=== PATIENT | female | born 1990 | race African-American/Black ===

== ENCOUNTER 2019-08-02 10:11 | Emergency (ER) | payer MEDICAID ==
[~2019-08-02] VITALS: Ht 160 cm; Wt 42.0 kg
[2019-08-02 10:36] VITALS: BP 131/80
[2019-08-02] MEDS: KETOROLAC 60MG/2ML VIAL IM ONE (11:17)
== END 2019-08-02 11:22 | disposition home or self-care (01) ==
LOC: ER 10:29
DX: K08.89 Other specified disorders of teeth and supporting structures (principal); F12.10 Cannabis abuse, uncomplicated; F17.200 Nicotine dependence, unspecified, uncomplicated
CPT/HCPCS: 81025; 96372; 99283; J1885

== ENCOUNTER 2024-03-17 18:03 | Emergency (ER) | payer MEDICAID, OTHER ==
[~2024-03-17] VITALS: Ht 167.6 cm; Wt 58.0 kg
[2024-03-17 18:07] VITALS: TEMP 98.1; O2SAT 100
[2024-03-17 18:35] VITALS: BP 120/77; PULSE 118; RESP 18
[2024-03-17] MEDS: KETOROLAC 30MG/ML VIAL IM ONE (18:35)
[2024-03-17] MEDS ORDERED: ACET-2708 MT (19:19)
== END 2024-03-17 19:57 | disposition home or self-care (01) ==
LOC: ER 18:03
DX: R51.9 Headache, unspecified (principal); F12.10 Cannabis abuse, uncomplicated; Y08.89XA Assault by other specified means, initial encounter; Y93.89 Activity, other specified; Y92.89 Other specified places as the place of occurrence of the external cause; Y99.8 Other external cause status
CPT/HCPCS: 81025; 96372; 99283; J1885; Z7610 ×2; L1830